=== PATIENT | male | born 1980 | race Caucasian/White ===

== ENCOUNTER 2017-05-12 21:47 | Inpatient (IN) | payer OTHER, BC ==
[2017-05-12] MEDS ORDERED: MORPHINE SULFATE 4 MG/ML INJ IV PUSH ONE (22:15)
[2017-05-12] MEDS ORDERED: ONDANSETRON HCL 4 MG/2 ML VIAL IV PUSH ONE (22:15)
[2017-05-12 22:20] VITALS: BP 145/63; PULSE 91; RESP 16; TEMP 97.6; O2SAT 100
[2017-05-13] MEDS ORDERED: MISCELLANEOUS NURSING INFORMATION XX SCH
[2017-05-13] MEDS ORDERED: ONDANSETRON HCL 4 MG/2 ML VIAL IV PUSH PRN
[2017-05-13] MEDS ORDERED: DOCUSATE SODIUM 100 MG CAP PO SCH
[2017-05-13] MEDS ORDERED: LACTATED RINGER'S 1000 ML INJ 1,000 ML IV SCH
[2017-05-13] MEDS ORDERED: MORPHINE SULFATE 4 MG/ML INJ IV PUSH PRN
[2017-05-13] MEDS ORDERED: CHLORHEXIDINE GLUCONATE 2 % 1 PACK (2 CLOTHS) TOP PRN
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
[2017-05-13] MEDS ORDERED: IOHEXOL 350 MG/ML 10 ML VIAL (for RAD DIAG) IVCONTRAST ONE (00:14)
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
[2017-05-13] MEDS ORDERED: LACTATED RINGER'S 1000 ML INJ 1,000 ML IV ONE (00:45)
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
[2017-05-13] MEDS ORDERED: SILV1CRE20 TOPICAL (01:35)
[2017-05-13] MEDS ORDERED: CHLORHEXIDINE GLUCONATE 2 % 1 PACK (2 CLOTHS) TOP SCH (04:00)
== END 2017-05-13 01:49 | disposition home or self-care (01) | DRG 935 ==
LOC: NEPE 21:47 → NEDA 05-13 00:05
PROVIDERS: ADMIT Surgery Trauma Surgery; ATTEND Surgery Trauma Surgery
DX: T23.201A Burn of second degree of right hand, unspecified site, initial encounter (principal); R11.0 Nausea; T23.202A Burn of second degree of left hand, unspecified site, initial encounter; S20.219A Contusion of unspecified front wall of thorax, initial encounter; R40.2413 Glasgow coma scale score 13-15, at hospital admission; V89.2XXA Person injured in unspecified motor-vehicle accident, traffic, initial encounter; Y92.410 Unspecified street and highway as the place of occurrence of the external cause; Z72.0 Tobacco use
CPT/HCPCS: 71260; 74177; 96374; 96375; J2270; J2405; Q9967